=== PATIENT | female | born 1990 | race American Indian/Alaskan Native ===

== ENCOUNTER 2019-04-26 11:44 | Outpatient (CLI) | payer OTHER ==
[2019-04-26] MEDS ORDERED: LACTATED RINGERS 500 ML IV ONE (12:43)
[2019-04-26] MEDS ORDERED: LACTATED RINGERS 1,000 ML IV SCH (13:00)
[2019-04-26] MEDS ORDERED: BRETHINE ONE (13:00)
[2019-04-26] MEDS: BRETHINE SUB-Q SCH ×2 (13:25→13:49)
[2019-04-26] MEDS ORDERED: LACTATED RINGERS 1,000 ML IV ONE (15:15)
[2019-04-26 15:49] VITALS: BP 138/68
== END 2019-04-26 16:09 | disposition home or self-care (01) ==
LOC: TRG 11:44
PROVIDERS: ATTEND Obstetrics & Gynecology
DX: O60.03 Preterm labor without delivery, third trimester (principal); O99.323 Drug use complicating pregnancy, third trimester; F12.90 Cannabis use, unspecified, uncomplicated; Z90.49 Acquired absence of other specified parts of digestive tract; Z3A.31 31 weeks gestation of pregnancy
CPT/HCPCS: 96360; 96361; 96372; J3105; J7120; 96366; 96369

== ENCOUNTER 2019-05-20 19:58 | Outpatient (CLI) | payer OTHER ==
[2019-05-20] MEDS ORDERED: LACTATED RINGERS 1,000 ML IV ONE (20:56)
[2019-05-20 22:02] LABS: Bacteria,Urine 1+ /HPF (Negative); Bilirubin,Urine NEG (Negative); Blood,Urine SM (Negative); Color,Urine Yellow (Yellow); Mucus,Urine FEW /HPF; Protein,Urine <15 mg/dL mg/dL (Negative); Urobilinogen,Urine < 2.0 mg/dL (<2.0)
[2019-05-20 22:25] VITALS: BP 119/57
[2019-05-20] MEDS ORDERED: ZOFRAN IV ONE (23:00)
--- NOTE | 2019-05-20 23:13 | Ultrasound Report ---
OB ultrasound. 05/20/2019. HISTORY: Possible premature rupture of membranes. FINDINGS: Limited OB ultrasound was performed. A single viable intrauterine is in the cepha lic position. heart tones are 145 bpm. Amniotic fluid index is 16 cm. IMPRESSION: Normal DAYANA of 16. Signer Name: Manolo Wynn MD Signed: 05/20/2019 11:08 PM Workstation Name: [id number]
== END 2019-05-20 23:05 | disposition home or self-care (01) ==
LOC: TRG 19:58 → LD 20:41 → TRG 23:05
PROVIDERS: ATTEND Obstetrics & Gynecology
DX: O42.913 Preterm premature rupture of membranes, unspecified as to length of time between rupture and onset of labor, third trimester (principal); O09.213 Supervision of pregnancy with history of pre-term labor, third trimester; O26.893 Other specified pregnancy related conditions, third trimester; R11.0 Nausea; R10.9 Unspecified abdominal pain; O99.113 Other diseases of the blood and blood-forming organs and certain disorders involving the immune mechanism complicating pregnancy, third trimester; D68.59 Other primary thrombophilia; O99.323 Drug use complicating pregnancy, third trimester; F12.90 Cannabis use, unspecified, uncomplicated; Z79.01 Long term (current) use of anticoagulants; Z90.49 Acquired absence of other specified parts of digestive tract; Z3A.35 35 weeks gestation of pregnancy
CPT/HCPCS: 59025; 76815; 81001; 96361; 96365; J2405; J7120; 96360; 96374